=== PATIENT | female | born 1950 | race Caucasian/White ===

== ENCOUNTER 2017-09-18 21:52 | Observation (INO) | payer OTHER ==
[~2017-09-18] VITALS: Ht 149.9 cm; Wt 42.1 kg
[2017-09-18 22:32] LABS: HEMOGLOBIN 12.6 G/DL (11.9-15.5); MCH 29.4 PG (29.0-34.0); MCHC 33.2 G/DL (30.0-36.0); MCV 88.6 FL (83-99); PLATELET COUNT 230 K/uL (156-360); RBC DIS.WIDTH-CV 13.2 % (11.8-14.6); RBC DIS.WIDTH-SD 42.6 % (39-53); RED BLOOD COUNT 4.29 M/uL (3.80-5.20); WHITE BLOOD COUNT 8.7 K/uL (4.1-10.2)
[2017-09-18 22:41] LABS: CHLORIDE 102 mEq/L (99-109); POTASSIUM 3.6 mEq/L (3.7-5.4); SODIUM 140 mEq/L (136-147)
[2017-09-18 22:43] LABS: GLUCOSE 111 mg/dL (70-99)
[2017-09-18 22:47] LABS: CREATININE 0.8 mg/dL (0.6-1.3); GFR ESTIMATE (CALCULATED) > 59 mL/min/; UREA NITROGEN (BUN) 13 mg/dL (9-23)
[2017-09-18 22:54] LABS: TROP-I INTERPRETATION NEGATIVE; TROPONIN-I < 0.01 ng/mL (0.0-0.30)
[2017-09-19] MEDS ORDERED: ZOLPIDEM TARTRA10 MG PO (00:52)
[2017-09-19] MEDS ORDERED: LISINOPRIL40 MG PO (00:53)
[2017-09-19] MEDS ORDERED: PLAVIX75 MG PO (00:53)
[2017-09-19] MEDS ORDERED: ONE DAILY FOR1 EAC3 PO (00:56)
[2017-09-19] MEDS ORDERED: LO-DOSE ASPIRIN81 M2 PO (00:57)
[2017-09-19] MEDS ORDERED: CELEXA20 MG PO (00:57)
[2017-09-19] MEDS ORDERED: DIGOXIN125 MCG PO (00:58)
[2017-09-19] MEDS ORDERED: ALENDRONATE SOD70 MG PO (01:00)
[2017-09-19] MEDS ORDERED: ROSUVASTATIN CA40 MG PO (01:00)
[2017-09-19] MEDS ORDERED: LOPRESSOR25 MG PO (01:01)
[2017-09-19] MEDS ORDERED: FUROSEMIDE20 MG PO (01:02)
[2017-09-19] MEDS ORDERED: NITROSTAT0.4 MG SL (01:04)
[2017-09-19 02:30] LABS: DIGOXIN 0.5 ng/mL (0.8-2.0)
[2017-09-19 02:52] VITALS: BP 139/68
[2017-09-19 06:42] LABS: TROP-I INTERPRETATION NEGATIVE; TROPONIN-I 0.01 ng/mL (0.0-0.30)
[2017-09-19 07:18] VITALS: BP 115/56
[2017-09-19 11:27] LABS: TROP-I INTERPRETATION NEGATIVE; TROPONIN-I 0.01 ng/mL (0.0-0.30)
[2017-09-19 11:30] VITALS: BP 118/59
== END 2017-09-19 15:00 | disposition home or self-care (01) ==
LOC: EME 21:52 → 5WEST 09-19 01:20 → EDOF 09-19 01:20 → ENRESERV 09-19 01:21 → 5WEST 09-19 02:39
PROVIDERS: Physician Assistant
DX: R07.9 Chest pain, unspecified (principal); R55 Syncope and collapse; I25.10 Atherosclerotic heart disease of native coronary artery without angina pectoris; Z95.1 Presence of aortocoronary bypass graft; I10 Essential (primary) hypertension; E78.5 Hyperlipidemia, unspecified; J44.9 Chronic obstructive pulmonary disease, unspecified; I25.5 Ischemic cardiomyopathy; I34.0 Nonrheumatic mitral (valve) insufficiency; I35.1 Nonrheumatic aortic (valve) insufficiency; F17.210 Nicotine dependence, cigarettes, uncomplicated; Z79.82 Long term (current) use of aspirin; Z79.02 Long term (current) use of antithrombotics/antiplatelets; Z82.49 Family history of ischemic heart disease and other diseases of the circulatory system
CPT/HCPCS: 71046; 80048; 80162; 84484; 85027; 93005; G0378